=== PATIENT | female | born 1935 | race Asian ===

== ENCOUNTER 2021-11-10 00:33 | Inpatient (IN) | payer OTHER, MEDICARE ==
[~2021-11-10] VITALS: Ht 157.5 cm; Wt 56.7 kg
--- NOTE | 2021-11-10 00:40 | NUR ---
PATIENT PLACED IN BED [address] MURPHY AT BEDSIDE.
[2021-11-10 00:41] VITALS: BP_SYST 164
--- NOTE | 2021-11-10 00:44 | NUR ---
PATIENT BIBA FROM HOME FOR GENERAL WEAKNESS AND INCREASE IN ANXIETY. PATIENT MOANING BUT STATES SHE ALWAYS MOANS, AND STOPS MOANING WHEN SPEAKING. PATIENT WAS RECENTLY DISCHARGED FOR SEPSIS OF UNKNOWN ORIGIN. PATIENT A/OX4, BED-BOUND WITH WHEELER IN PLACE.
--- NOTE | 2021-11-10 01:04 | NUR ---
ASSUME CARE OF PTJOELLEN FOR INCREASED ANXIETY, PT STATES SHE ALWAYS MOANS, PER FAMILY SHE DOES NOT. PT WAS UNABLE TO SLEEP TONIGHT AND FAMILY DID NOT KNOW WHAT TO DO SO EMS WAS CALLED TO BRING HER TO ER, AT BEDSIDE. HX- ANXIETY AND A-FIB.
[2021-11-10] MEDS ORDERED: LORazepam 2 MG/ML VIAL IVP ONE ×2 (01:15→05:00)
--- NOTE | 2021-11-10 01:45 | NUR ---
PT LINEN AND DIAPER CHANGED, PT HAD SMALL DM, CLEANED WITH WIPES, PT HAS STAGE 1 BEDSORE ON COCCYX, DRESSING APPLIED, NEW PAD PLACED, WARM BLANKET GIVEN, PT RESTING IN BED.
[2021-11-10 02:01] LABS: ANION GAP 3 (5-15); CALCIUM 8.2 mg/dL (8.4-11.0); CHLORIDE 97 mmol/L (98-107); CREATININE 0.58 mg/dL (0.55-1.30); GLUCOSE 102 mg/dL (70-99); POTASSIUM 3.4 mmol/L (3.5-5.1); UREA NITROGEN, BLOOD 28 mg/dL (8-21)
[2021-11-10 02:06] LABS: ALANINE AMINOTRANSFERASE 18 U/L (12-78); ALBUMIN 2.3 g/dL (3.4-4.8); ASPARTATE AMINOTRANSFERASE 19 U/L (10-37); TOTAL BILIRUBIN 0.3 mg/dL (0.0-1.0)
[2021-11-10 02:18] LABS: BASOPHILS # (AUTO) 0.1 K/uL (0.0-0.2); BASOPHILS % (AUTO) 0.5 % (0.0-2.0); EOSINOPHILS # (AUTO) 0.1 K/uL (0.0-0.4); EOSINOPHILS % (AUTO) 1.3 % (0.0-4.0); HEMOGLOBIN 11.5 g/dL (12.0-16.0); LYMPHOCYTES # (AUTO) 0.8 K/uL (1.0-5.5); LYMPHOCYTES % (AUTO) 7.3 % (20.5-51.5); MEAN CORPUSCULAR HEMOGLOBIN 30 pg (27-31); MEAN CORPUSCULAR HGB CONC 35 % (32-36); MEAN CORPUSCULAR VOLUME 86 fL (79.0-98.0); MONOCYTES # (AUTO) 0.6 K/uL (0.0-1.0); MONOCYTES % (AUTO) 5.9 % (1.7-9.3); NEUTROPHILS # (AUTO) 9.3 K/uL (1.8-7.7); PLATELET COUNT (AUTO) 348 K/uL (130-430); RED BLOOD CELL COUNT(AUTO) 3.85 MIL/uL (4.2-6.2); RED CELL DISTRIBUTION WIDTH 16.6 % (9.0-15.0); WHITE BLOOD COUNT (AUTO) 10.9 K/uL (4.8-10.8)
[2021-11-10] MEDS ORDERED: MAGNESIUM CITRATE 300 ML ORAL SOLUTION PO ONE (03:15)
[2021-11-10 03:50] LABS: BILIRUBIN,URINE NEGATIVE (NEGATIVE); BLOOD, URINE 3+ (NEGATIVE); CLARITY/URINE CLEAR (CLEAR); COLOR,URINE YELLOW (YELLOW); GLUCOSE,URINE NEGATIVE (NEGATIVE); KETONES,URINE NEGATIVE (NEGATIVE); LEUKOCYTE ESTERASE ,URINE 1+ (NEGATIVE); NITRITE, URINE POSITIVE (NEGATIVE); PROTEIN URINE NEGATIVE (NEGATIVE); UROBILINOGEN,URINE 0.2 (0.2-1.0)
--- NOTE | 2021-11-10 03:50 | NUR ---
# 16 FR Whatley catheter with use of sterile technique. Immediate return of 100cc YELLOW CLOUDY urine noted. Bedside drainage bag placed below level of bladder. Urine sample collected and sent to lab. Pt tolerated procedure WELL. Patient arrived with whatley in place, changed due to standard of practice prior to admission.
--- NOTE | 2021-11-10 04:20 | NUR ---
PATIENT IN CT SCAN AT THIS TIME
[2021-11-10 04:32] LABS: RBC,URINE >100 /HPF (0-3)
[2021-11-10 04:33] LABS: BACTERIA,URINE None Seen /HPF (None Seen)
[2021-11-10 04:34] LABS: MUCUS,URINE 1+ /LPF (None Seen)
--- NOTE | 2021-11-10 04:44 | NUR ---
PT RETURN FROM CT SCAN
--- NOTE | 2021-11-10 05:25 | NUR ---
Admit bed requested Patient will be admitted to care of [OZZIE]. Admitted to [MED SURG] unit. Diagnosis [COMPLEX UTI] Inpatient (Yes or No) [YES] Observation (Yes or No) [NO] Orientation concerns or request close to nursing station (Yes or No) [NO] Covid Status [NEG] On vent or bipap [NO] Isolation requirements [NO] Needs a sitter [NO] From Home (Yes or if No enter name of facility) [YES] Requires Dialysis (Yes or No) [NO] Med Rec Completed (Yes of No) [NO]
[2021-11-10] MEDS ORDERED: ONDANSETRON HCL 4 MG/2 ML VIAL IVP PRN (05:30)
[2021-11-10] MEDS ORDERED: KETOROLAC TROMETHAMINE 15 MG VIAL IVP PRN (05:30)
--- NOTE | 2021-11-10 06:00 | NUR ---
PT LINEN AND PAD CHANGED. CLEAN PAD AND LINEN PLACED. WARM BLANKETS PROVIDED, PT RESTING IN BED.
[2021-11-10] MEDS ORDERED: SODIUM PHOSPHATE,MONO-DIBASIC 133 ML ENEMA RC ONE (06:45)
--- NOTE | 2021-11-10 07:59 | NUR ---
REPORT RECEIVED, PT IN NAD, WITH EYES CLOSED, VSS. RESP EVEN AND UNLABORED, ON RA @94%. SAFETY MEASURES IN PLACE, WILL CONT TO MONITOR. WAITING FOR ADMISSION BED.
[2021-11-10] MEDS: cefTRIAXone 1 GM VIAL IM SCH ×2 (10:23→10:40)
--- NOTE | 2021-11-10 10:28 | NUR ---
REPORT GIVEN TO BRENNA TORRES IN M/S, UPDATED ON PT'S STATUS, LABS AND VITALS. PT STABLE FOR TRANSFER.
[2021-11-10] MEDS ORDERED: LIDOCAINE 1%, 20 ML MDV 20 ML ONE (10:30)
--- NOTE | 2021-11-10 11:00 | NUR ---
ADMISSION NOTES RECEIVED PT FROM E.R. WITH DX OF COMPLEX UTI UNDER THE CARE OF DR HORNE. PT SITUATED IN BED, ON O2 2L PER NC, VITALS WNL, NO FEVER. PT IS LETHARGIC, PT HAS SLURRED SPEECH. PT EDUCATED ON THE USE OF CALL LIGHT, TV AND BED CONTROLS, NEED FURTHER INSTRUCTION. WILL ENDORSE TO ACCEPTING NURSE FOSTER.
--- NOTE | 2021-11-10 11:05 | NUR ---
ADMISSION NOTE Received patient from ER via gurney. Patient admitted with diagnosis of complex UTI. Patient is awake, alert, oriented X 2. Patient oriented to hospital room, call light, toileting, pain management and safety-teach back done. Patient informed that their room number is 132 C. Personal belongings checked and Belongings List documented. Call light within reach.
[2021-11-10 11:46] VITALS: BP_SYST 109
--- NOTE | 2021-11-10 11:48 | NUR ---
Patient will be admitted to care of RN. Admitted to med surg. unit. Will go to room 132c Belongings list completed. Complete and up to date summary report printed. SBAR report to be given at bedside with opportunity for questions.
[2021-11-10 14:00] VITALS: BP_SYST 115
[2021-11-10 17:07] VITALS: BP_SYST 110
--- NOTE | 2021-11-10 19:20 | NUR ---
Closing Notes: Patient resting in bed. No s/s of acute distress noted. Needs met throughout shift. Endorsed to dryer and washer mechanic RN.
[2021-11-10 20:00] VITALS: BP_SYST 130
--- NOTE | 2021-11-10 20:00 | NUR ---
HAND-OFF REPORT RECEIVED FROM AM NURSE HANS . NEXT DOSE OF ANTIBIOTICS NOT DUE TILL TOMORROW. SON AT BEDSIDE REQUESTING ATIVAN FOR TONIGHT "OTHERWISE SHE MOANS THRU OUT NOC INSPITE WHETHER SHE IS IN PAIN OR NOT." PT RECEIVED IN BED AWAKE AND ALERTX2. DENIES PAIN. WHEELER TO GRAVITY FLOW REINALDO URINE QUANTITY SUFFICIENT..
--- NOTE | 2021-11-10 22:10 | NUR ---
TYLENOL 500 MG FOR STATED "MIDDLE BACK PAIN" 08/24. REALLY MOANING QUITE A BIT NOW. PHONE CALL X1 TO OZZIE FARR FOR ATIVAN ORDER.
[2021-11-10] MEDS: ACETAMINOPHEN 500 MG TABLET PO PRN (22:34)
[2021-11-11] MEDS ORDERED: LORazepam 2 MG/ML VIAL IVP PRN (00:45)
--- NOTE | 2021-11-11 01:08 | NUR ---
DR HORNE PHONED AGAIN AND PROMPTLY RETURNED CALL. 1MG OF ATIVAN GIVEN SEE EMAR.
--- NOTE | 2021-11-11 01:30 | NUR ---
PT SLEEPING SOUNDLY. CONTINUE TO MONITOR AND ASSIST NEEDED.
[2021-11-11 04:00] VITALS: BP_SYST 139
[2021-11-11 08:00] VITALS: BP_SYST 110
[2021-11-11] MEDS: ACETAMINOPHEN 500 MG TABLET PO PRN ×2 (08:15→22:56)
--- NOTE | 2021-11-11 09:22 | NUR ---
PAGED PAGED KHRIS ESTRADA AT [phone] SPOKE WITH PEDRITO
[2021-11-11] MEDS ORDERED: SODIUM PHOSPHATE,MONO-DIBASIC 133 ML ENEMA RC ONE (09:45)
[2021-11-11] MEDS ORDERED: POLYETHYLENE GLYCOL 3350, 17 GM/ POWD.PACK PO ONE (10:00)
[2021-11-11] MEDS ORDERED: PIPERACILLIN/TAZO 4.5GM/DEX-IS 100 ML IV ONE (10:45)
[2021-11-11 12:00] VITALS: BP_SYST 100
[2021-11-11] MEDS: HYDROcodone/ACETAMIN 5-325 MG TAB (NORCO/ VICODIN) PO PRN (12:00)
[2021-11-11] MEDS ORDERED: PIPERACILLIN/TAZO 4.5GM/DEX-IS 100 ML IV SCH (14:00)
--- NOTE | 2021-11-11 14:12 | NUR ---
PAGED PAGED KHRIS ESTRADA AT [phone] SPOKE WITH PEDRITO.
[2021-11-11 16:00] VITALS: BP_SYST 155
[2021-11-11] MEDS ORDERED: MINERAL OIL 30 ML UDC PO ONE (16:00)
--- NOTE | 2021-11-11 16:15 | NUR ---
CONSULTATION PAGED REASON FOR CONSULTATION:SEVERE CONSTIPATION WAS CONSULT CALLED?Y -PERSON WHO WAS NOTIFIED:KATHY CONSULTING PHYSICIAN:RODRICK CAREY (RAMIREZ IRENE MACHINE PRESSER) UNATTENDED GROUND SENSOR SPECIALIST SPECIALTY:GI UNATTENDED GROUND SENSOR SPECIALIST PHONE NUMBER:[phone] REQUESTING PHYSICIAN:KHRIS ESTRADA
--- NOTE | 2021-11-11 18:29 | NUR ---
PATIENT HAS BEEN HAVING DIFFICULTY EVACUATING BM FROM RECTUM. I NOTIFIED DR. HORNE THIS AM FOR THIS PROBLEM EARLIER AND SEVERAL MEASURES HAVE BEEN IMPLEMENTED TO ASSIST IN THIS MATTER. PT WAS GIVEN A FLEETS ENEMA AND MIRALAX THIS AM. PT REPOSITIONED TO ASSIST IN COMFORT TO HAVE A BM. DR. HORNE MADE ROUNDS THIS PM AND FURTHER ORDERS NOTED TO INCLUDE A KUB, GI CONSULT AND MINERAL OIL PO. PT HAS HAD FAMILY AT BEDSIDE THROUGHOUT THE SHIFT TO SUPPORT HER. PT IS ALERT AND SPEAKS CLEARLY. HOWEVER, PT DOES MOAN AT INTERVALS. PT'S FAMILY SAYS - ITS A HABIT OF THE PATIENT. FAMILY REMAINS AT BEDSIDE AT THIS TIME.
[2021-11-11] MEDS ORDERED: HYD10 PO ×2 (18:33)
[2021-11-11] MEDS ORDERED: GUAI100S14 PO (18:33)
[2021-11-11] MEDS ORDERED: ASCO500T20 PO (18:33)
[2021-11-11] MEDS ORDERED: FLOR.1 GT (18:33)
[2021-11-11] MEDS ORDERED: AMIO200T66 PO (18:33)
[2021-11-11] MEDS ORDERED: ACET325T53 PO (18:33)
[2021-11-11] MEDS ORDERED: HYDR-3917 PO (18:33)
[2021-11-11] MEDS ORDERED: ALBU2.5V7 INH (18:33)
[2021-11-11] MEDS ORDERED: DOCU-144 PO (18:33)
[2021-11-11] MEDS ORDERED: APIX2.5T PO (18:33)
[2021-11-11] MEDS ORDERED: TRAM50TA2 PO (18:33)
[2021-11-11] MEDS ORDERED: MULT15TA3 PO (18:33)
[2021-11-11] MEDS ORDERED: HYDR-4037 PO (18:33)
[2021-11-11] MEDS ORDERED: HYDR-4038 PO (18:33)
[2021-11-11] MEDS ORDERED: TEMA15CA5 PO (18:33)
[2021-11-11 20:00] VITALS: BP_SYST 153
[2021-11-11] MEDS: PIPERACILLIN/TAZO 4.5GM/DEX-IS 100 ML IV SCH (20:45)
[2021-11-11] MEDS: POLYETHYLENE GLYCOL 3350, 17 GM/ POWD.PACK PO SCH (20:45)
[2021-11-11] MEDS: MINERAL OIL 30 ML UDC PO SCH (20:45)
[2021-11-11] MEDS: HYDROCORTISONE 10 MG TABLET (CORTEF) PO SCH ×2 (21:45)
[2021-11-11] MEDS: hydrALAZINE HCL 25 MG TABLET PO SCH (22:00)
[2021-11-11] MEDS: SODIUM CHLORIDE 500 MG TABLET PO SCH (22:54)
[2021-11-11] MEDS: AMIODARONE HCL 200 MG TABLET PO SCH ×2 (22:55→22:59)
[2021-11-11] MEDS: APIXABAN 2.5 MG TABLET PO SCH (23:11)
[2021-11-12] VITALS: BP_SYST 102
[2021-11-12 04:00] VITALS: BP_SYST 95
[2021-11-12] MEDS: PIPERACILLIN/TAZO 4.5GM/DEX-IS 100 ML IV SCH ×3 (05:13→21:04)
--- NOTE | 2021-11-12 07:30 | NUR ---
OPENING NOTE Patient resting in bed with eyes closed. Patient moans periodically, assisted patient in repositioning and comfort measures provided. Lopez catheter is in place draining yellow urine. All needs met at this time and safety checks made.
[2021-11-12 07:34] VITALS: BP_SYST 129
[2021-11-12] MEDS: POLYETHYLENE GLYCOL 3350, 17 GM/ POWD.PACK PO SCH ×2 (09:00→22:24)
[2021-11-12] MEDS: MINERAL OIL 30 ML UDC PO SCH ×2 (09:15→21:49)
[2021-11-12] MEDS: hydrALAZINE HCL 25 MG TABLET PO SCH ×2 (09:16→21:00)
[2021-11-12] MEDS: SODIUM CHLORIDE 500 MG TABLET PO SCH ×3 (09:16→21:50)
[2021-11-12] MEDS: DOCUSATE SODIUM 100 MG CAPSULE PO SCH ×2 (09:17→21:49)
[2021-11-12] MEDS: HYDROcodone/ACETAMIN 5-325 MG TAB (NORCO/ VICODIN) PO PRN (09:17)
[2021-11-12] MEDS: HYDROCORTISONE 10 MG TABLET (CORTEF) PO SCH ×2 (09:18→17:57)
[2021-11-12] MEDS: APIXABAN 2.5 MG TABLET PO SCH ×2 (09:19→21:50)
--- NOTE | 2021-11-12 10:00 | NUR ---
AT BEDSIDE Dr Tellez at bedside to see the patient. performed a manual disimpaction and was able to remove a large amount of hard stool. Patient cleaned and comfort measures provided. All needs met at this time and safety checks made.
[2021-11-12] MEDS ORDERED: MAGNESIUM CITRATE 300 ML ORAL SOLUTION PO ONE (11:15)
[2021-11-12 11:31] VITALS: BP_SYST 120
--- NOTE | 2021-11-12 13:51 | NUR ---
ROUNDS Patient in bed resting with eyes closed. Patient has been cooperative with her care. Family is at bedside and they have been updated on the plan of care. Patient does not appear to be in any pain or have any distress. All needs met at this time and safety checks made.
[2021-11-12 16:12] VITALS: BP_SYST 122
--- NOTE | 2021-11-12 18:30 | NUR ---
CLOSING NOTE Patient is resting in bed, no sign of distress and denies pain. Patient is much more cooperative with her care when family is at bedside. Patient and family have been updated on the plan of care and verbalized understanding. Lopez catheter is patent and draining yellow urine. Patient has had a decreased appetite throughout the shift. No complaints of stomach pain, patient has not had any more bowel movements since her digital decompation this morning. All needs met at this time and safety checks made. Will endorse to awake overnight monitor nurse.
[2021-11-12 20:51] VITALS: BP_SYST 129
[2021-11-12] MEDS: ACETAMINOPHEN 500 MG TABLET PO PRN (22:17)
[2021-11-12] MEDS: AMIODARONE HCL 200 MG TABLET PO SCH (22:17)
[2021-11-12] MEDS: TEMAZEPAM 15 MG CAPSULE PO PRN (22:18)
[2021-11-13 02:16] VITALS: BP_SYST 104
--- NOTE | 2021-11-13 02:32 | NUR ---
Patient had two very large hard stools this shift and one small one, she continued to push as she was in pain, prescribed medications including Tylenol given, her hydralazine not given as her blood pressure was within range,she is stable, sleeping.
[2021-11-13] MEDS: PIPERACILLIN/TAZO 4.5GM/DEX-IS 100 ML IV SCH ×3 (03:04→21:52)
[2021-11-13 04:18] VITALS: BP_SYST 119
[2021-11-13 06:52] LABS: BASOPHILS % (AUTO) 0.5 % (0.0-2.0); EOSINOPHILS # (AUTO) 0.1 K/uL (0.0-0.4); EOSINOPHILS % (AUTO) 1.7 % (0.0-4.0); HEMOGLOBIN 9.9 g/dL (12.0-16.0); LYMPHOCYTES # (AUTO) 0.5 K/uL (1.0-5.5); LYMPHOCYTES % (AUTO) 6.2 % (20.5-51.5); MEAN CORPUSCULAR HEMOGLOBIN 30 pg (27-31); MEAN CORPUSCULAR HGB CONC 36 % (32-36); MEAN CORPUSCULAR VOLUME 85 fL (79.0-98.0); MONOCYTES # (AUTO) 0.5 K/uL (0.0-1.0); MONOCYTES % (AUTO) 6.3 % (1.7-9.3); NEUTROPHILS # (AUTO) 7.5 K/uL (1.8-7.7); NEUTROPHILS % (AUTO) 85.3 % (40.0-70.0); PLATELET COUNT (AUTO) 279 K/uL (130-430); RED BLOOD CELL COUNT(AUTO) 3.29 MIL/uL (4.2-6.2); RED CELL DISTRIBUTION WIDTH 17.1 % (9.0-15.0); WHITE BLOOD COUNT (AUTO) 8.7 K/uL (4.8-10.8)
[2021-11-13 07:06] LABS: ANION GAP 5 (5-15); CHLORIDE 93 mmol/L (98-107); GLUCOSE 108 mg/dL (70-99); UREA NITROGEN, BLOOD 17 mg/dL (8-21)
[2021-11-13 07:23] LABS: CREATININE 0.61 mg/dL (0.55-1.30)
[2021-11-13 07:29] LABS: CALCIUM 7.7 mg/dL (8.4-11.0)
--- NOTE | 2021-11-13 07:30 | NUR ---
OPENING NOTE Patient in bed resting with eyes closed, no sign of distress or pain. Nasal cannula in place on 2L, breathing is nonlabored and even, oxygen saturation 98%. Lopez catheter is patent and draining leigh urine. Patient periodically moans out but denies pain. All needs met at this time and safety checks made.
[2021-11-13 08:00] VITALS: BP_SYST 109
[2021-11-13] MEDS: hydrALAZINE HCL 25 MG TABLET PO SCH ×2 (09:00→21:54)
[2021-11-13] MEDS ORDERED: POTASSIUM CHLORIDE 20 MEQ TAB.PRT.SR PO ONE ×2 (09:30→13:30)
--- NOTE | 2021-11-13 10:00 | NUR ---
BOWEL MOVEMENT Patient had a large formed bowel movement. Patient cleaned and all needs met at this time.
[2021-11-13] MEDS: MINERAL OIL 30 ML UDC PO SCH ×2 (10:37→21:55)
[2021-11-13] MEDS: SODIUM CHLORIDE 500 MG TABLET PO SCH ×3 (10:38→21:56)
[2021-11-13] MEDS: DOCUSATE SODIUM 100 MG CAPSULE PO SCH ×2 (10:38→21:54)
[2021-11-13] MEDS: HYDROCORTISONE 10 MG TABLET (CORTEF) PO SCH ×2 (10:38→17:59)
[2021-11-13] MEDS: AMIODARONE HCL 200 MG TABLET PO SCH ×2 (10:39→21:57)
[2021-11-13] MEDS: POLYETHYLENE GLYCOL 3350, 17 GM/ POWD.PACK PO SCH ×2 (10:39→21:56)
[2021-11-13] MEDS: APIXABAN 2.5 MG TABLET PO SCH ×2 (10:40→21:55)
[2021-11-13 12:00] VITALS: BP_SYST 140
[2021-11-13 16:00] VITALS: BP_SYST 137
--- NOTE | 2021-11-13 17:23 | NUR ---
ROUNDS Patient in bed resting with family at bedside. Patient shows no sign of distress and denies pain. Nasal cannula in place and breathing is nonlabored and even. Patient has had a total of 3 bowel movements thus far on day shift, each has been smaller and less formed than the last. Patient's stomach is less tender and minimally distended. Bed bath was given and linen/gown changed. All needs met at this time and safety checks made.
--- NOTE | 2021-11-13 18:51 | NUR ---
CLOSING NOTE Patient resting in bed with family at bedside. Patient has had minimal moaning and no complaints of pain throughout the shift. Lopez catheter is patent and draining yellow urine. Patient and family are up to date on the plan of care. All needs met at this time and safety checks made. Will endorse to production supervisor off shift nurse.
--- NOTE | 2021-11-13 19:30 | NUR ---
RECEIVED PT IN BED WITH FAMILY AT THE BEDSIDE.AOX2, CONFUSED AT TIMES. IVL R AC G 20 ,PATENT AND INTACT.F/C IN PLACE.BED ALARM ON FOR SAFETY.BED IN LOWEST POSITION.BEDSIDE TABLE AND CALL LIGHT ARE WITHIN REACH.
[2021-11-13 20:00] VITALS: BP_SYST 136
--- NOTE | 2021-11-14 | NUR ---
ROUNDS MADE.PT IS ASLEEP.NOT IN RESPIRATORY DISTRESS NOTED.
[2021-11-14 01:05] VITALS: BP_SYST 105; BP_SYST 152
[2021-11-14] MEDS: PIPERACILLIN/TAZO 4.5GM/DEX-IS 100 ML IV SCH ×3 (03:31→20:44)
[2021-11-14 08:24] VITALS: BP_SYST 146
[2021-11-14] MEDS: SODIUM CHLORIDE 500 MG TABLET PO SCH ×3 (08:43→20:44)
[2021-11-14] MEDS: HYDROCORTISONE 10 MG TABLET (CORTEF) PO SCH ×2 (08:44→17:07)
[2021-11-14] MEDS: AMIODARONE HCL 200 MG TABLET PO SCH ×2 (08:44→20:41)
[2021-11-14] MEDS: DOCUSATE SODIUM 100 MG CAPSULE PO SCH (08:44)
[2021-11-14] MEDS: MINERAL OIL 30 ML UDC PO SCH (08:45)
[2021-11-14] MEDS: hydrALAZINE HCL 25 MG TABLET PO SCH ×2 (08:45→20:42)
[2021-11-14] MEDS: POLYETHYLENE GLYCOL 3350, 17 GM/ POWD.PACK PO SCH (08:45)
[2021-11-14] MEDS: APIXABAN 2.5 MG TABLET PO SCH ×2 (08:46→20:40)
[2021-11-14] MEDS ORDERED: POLYETHYLENE GLYCOL 3350, 17 GM/ POWD.PACK PO ONE (09:30)
--- NOTE | 2021-11-14 11:59 | NUR ---
Discharge Planning: DCP faxed pt referral to [facility] [phone] NIKIAP to follow up. Addendum: 11/14/21 at 1453 by Mabel Perez DP DCP arranged transport with [facility] [phone] BLS Will Call to [facility] [phone] Rm 224A. DCP made CM and nurse aware. Patient packet taken to nurse station. Disposition 03
[2021-11-14 12:00] VITALS: BP_SYST 137
--- NOTE | 2021-11-14 16:08 | NUR ---
S/W DR. HORNE AND HE SAID PT IS DC TO SNF. THEN S/W PT/'S DAUGHTER, ROCÍO. SHE STATED THAT NOBODY HAS TALKED TO HER ABOUT PT GOING TO ANY FACILITY, AND IF SHE IS BEING DISCHARGED SHE WILL GO HOME WITH FAMILY AND NOT TODAY BUT MAYBE SAT OR SUN. CALLED PETE MYSQL DEVELOPER, SHE STATED THAT DISCHARGE WAS DISCUSSED WITH DR. HORNE AND PLEASE HAVE DR. HORNE SPEAK WITH PT. CALLED MD BACK AND HE SAID HAVE MYSQL DEVELOPER CALL HIM BACK INSTEAD.
[2021-11-14 16:48] VITALS: BP_SYST 144
--- NOTE | 2021-11-14 18:23 | NUR ---
CLOSING NOTE: PT REMAINED STABLE THROUGHOUT THE DAY. PROVIDED SKIN CARE AND REPOSITIONING TO PREVENT SKIN BREAKDOWN. ALL CARE NEEDS MET. FALL/SAFETY/ASPIRATION PRECAUTIONS. BED IN LOW POSITION. DC PLANNING TOMORROW, PT AND FAMILY WANTS TO SPEAK WITH DR. HORNE.
[2021-11-14 20:30] VITALS: BP_SYST 156
[2021-11-14] MEDS: TEMAZEPAM 15 MG CAPSULE PO PRN (20:40)
[2021-11-15 01:20] VITALS: BP_SYST 134
[2021-11-15] MEDS: PIPERACILLIN/TAZO 4.5GM/DEX-IS 100 ML IV SCH ×3 (04:47→22:06)
--- NOTE | 2021-11-15 07:30 | NUR ---
OPENING NOTES: PATIENT IS RESTING IN BED QUIETLY. AAOX3 W/ EPISODE OF FORGETFULNESS. ABLE TO MAKE NEEDS KNOWN. [place] L>R. NO DISTRESS OR PAIN NOTED AT THIS TIME. EXPLAINED POC AND PATIENT VERBALIZED UNDERSTANDING. BED IN LOW AND LOCK POSITION. CALL LIGHT AND BEDSIDE TABLE WITHIN REACH. STABLE CONDITION.
[2021-11-15 08:00] VITALS: BP_SYST 142
[2021-11-15 08:48] LABS: ANION GAP 4 (5-15); CALCIUM 8.1 mg/dL (8.4-11.0); CHLORIDE 95 mmol/L (98-107); CREATININE 0.48 mg/dL (0.55-1.30); GLUCOSE 83 mg/dL (70-99); POTASSIUM 3.9 mmol/L (3.5-5.1); UREA NITROGEN, BLOOD 15 mg/dL (8-21)
[2021-11-15] MEDS: SODIUM CHLORIDE 500 MG TABLET PO SCH ×3 (09:27→22:08)
[2021-11-15] MEDS: AMIODARONE HCL 200 MG TABLET PO SCH ×2 (09:27→22:07)
[2021-11-15] MEDS: hydrALAZINE HCL 25 MG TABLET PO SCH ×2 (09:28→22:08)
[2021-11-15] MEDS: HYDROCORTISONE 10 MG TABLET (CORTEF) PO SCH ×2 (09:29→18:55)
[2021-11-15] MEDS: DOCUSATE SODIUM 100 MG CAPSULE PO SCH (09:29)
[2021-11-15] MEDS: POLYETHYLENE GLYCOL 3350, 17 GM/ POWD.PACK PO SCH (09:29)
[2021-11-15] MEDS: APIXABAN 2.5 MG TABLET PO SCH ×2 (09:31→22:10)
--- NOTE | 2021-11-15 11:15 | NUR ---
DISCHARGE PLANNING Per CM director spoke with dtr yest & does not want snf wants home with home health with IV abx, dtr had already spoken with Dr Louis. CM Director also spoke with JOVANY Garnica & plan was for home with home health IV abx. I called dtr Anna Oropeza, ph [phone], & no answer lt msg to return my call. Also informed pt's nurse to notify me if dtr come in or if calls to transfer to id. Called & lt msg with Dr Louis to return call for dc/dc planning orders. Addendum: 11/15/21 at 1415 by Donna Bedoya RN Called & spoke with nawaf Anna, ph [phone], at 1230. Verified address correct on face sheet. Pt lives at home with dtmelody Castillo. Has hospital bed, side table, wc, commode, home O2, the DME was delivered today to home by [employer], ph [phone]. Dtr is arranging the room for pt and would prefer discharge home tomorrow so she can finish arranging space for pt & pt's son is arriving tonight so will be able to assist tomorrow. Pt had whatley since early September. Pt was on services with [employer], ph [phone] fax [phone], and want to cont with same. Has spoken with Kevin and they are requesting pt info faxed to them, informed will send when get order. Would like to speak with Dr Louis before pt discharges. Called Dr Louis cell with no answer, called Dr Louis office, , & had paged to return call for dc planning orders. Addendum: 11/15/21 at 1526 by Donna Bedoya RN Received call back from Dr Loius, gave ph orders for home health & DME, is switching IV abx to Po ab. States will come in later to eval pt & will call & speak with dtmelody Castillo. Is going to be ordering bladder training for whatley removal, states he will eval & put in orders. Called and spoke with Chidi at [employer] & verified they delivered DME to home today to [employer] Sp lift order to them, fax [phone]. Updated dc corporate event planner, faxed referral to [facility] & [employer].
[2021-11-15 12:33] VITALS: BP_SYST 134
[2021-11-15 16:19] VITALS: BP_SYST 111
--- NOTE | 2021-11-15 16:46 | NUR ---
Dietitian Recommendations * Continue Mechanical Soft diet, as tolerated * Ensure HP TID (may/van) * Recommend Culturelle; continue bowel regimen per MD Please refer to Nutritional Assessment for details, thanks! CC, MPH, RDN
--- NOTE | 2021-11-15 17:40 | NUR ---
Patient was seen for OT evaluation. Pt was alert and cooperative, daughte present during eval. Pt will be doing OT tx QD 3x/wk. Pt tolerated eval, O2Sat 99 % at rest with 2.5/L O2 via nasal canula. 89-90% with activity. 93-94% after eval. Nursing notified. PLs see OT evaluation form in chart for more details.
--- NOTE | 2021-11-15 19:00 | NUR ---
CLOSING NOTES: PATIENT IS RESTING IN BED QUIETLY W/ DAUGHTER AT THE BEDSIDE. NO ADDITIONAL DISTRESS NOTED. ALL NEEDS MET. POSSIBLE DC TOMORROW. NEED TRANSPORT FOR DC. WILL ENDORSE TO NEXT SHIFT NURSE TO LET CM KNOW IN AM. STABLE CONDITION AT THIS TIME.
[2021-11-15 20:00] VITALS: BP_SYST 140
[2021-11-15] MEDS: TEMAZEPAM 15 MG CAPSULE PO PRN (22:06)
[2021-11-16 00:14] VITALS: BP_SYST 112
[2021-11-16] MEDS: PIPERACILLIN/TAZO 4.5GM/DEX-IS 100 ML IV SCH ×2 (04:54→13:58)
[2021-11-16 07:21] LABS: BASOPHILS # (AUTO) 0.1 K/uL (0.0-0.2); BASOPHILS % (AUTO) 0.8 % (0.0-2.0); EOSINOPHILS # (AUTO) 0.2 K/uL (0.0-0.4); EOSINOPHILS % (AUTO) 2.3 % (0.0-4.0); HEMATOCRIT 30.5 % (36-48); HEMOGLOBIN 10.7 g/dL (12.0-16.0); LYMPHOCYTES # (AUTO) 0.7 K/uL (1.0-5.5); LYMPHOCYTES % (AUTO) 9.9 % (20.5-51.5); MEAN CORPUSCULAR HEMOGLOBIN 30 pg (27-31); MEAN CORPUSCULAR HGB CONC 35 % (32-36); MEAN CORPUSCULAR VOLUME 86 fL (79.0-98.0); MONOCYTES # (AUTO) 0.8 K/uL (0.0-1.0); MONOCYTES % (AUTO) 10.2 % (1.7-9.3); NEUTROPHILS # (AUTO) 5.8 K/uL (1.8-7.7); NEUTROPHILS % (AUTO) 76.8 % (40.0-70.0); PLATELET COUNT (AUTO) 338 K/uL (130-430); RED BLOOD CELL COUNT(AUTO) 3.56 MIL/uL (4.2-6.2); RED CELL DISTRIBUTION WIDTH 16.8 % (9.0-15.0); WHITE BLOOD COUNT (AUTO) 7.6 K/uL (4.8-10.8)
--- NOTE | 2021-11-16 07:30 | NUR ---
Closing Patient stable, no distress noted. Hard of hearing, whiteboard utilized for communication. Patient's daughter was at bedside and had questions about the plan for discharge. She stated that she will bring updated information about their preferred pharmacy in AM on 9 and that they will need transport arranged.
--- NOTE | 2021-11-16 07:44 | NUR ---
Report received from retail shift supervisor RN for continuity of care. Patient stable condition. No acute distress noted.
[2021-11-16 08:08] LABS: ANION GAP 5 (5-15); CALCIUM 8.2 mg/dL (8.4-11.0); CHLORIDE 95 mmol/L (98-107); CREATININE 0.58 mg/dL (0.55-1.30); GLUCOSE 92 mg/dL (70-99); POTASSIUM 3.4 mmol/L (3.5-5.1); UREA NITROGEN, BLOOD 14 mg/dL (8-21)
[2021-11-16 08:15] VITALS: BP_SYST 149
[2021-11-16 08:59] VITALS: BP_SYST 149
[2021-11-16] MEDS: DOCUSATE SODIUM 100 MG CAPSULE PO SCH (09:02)
[2021-11-16] MEDS: HYDROCORTISONE 10 MG TABLET (CORTEF) PO SCH ×2 (09:02→18:14)
[2021-11-16] MEDS: hydrALAZINE HCL 25 MG TABLET PO SCH (09:02)
[2021-11-16] MEDS: POLYETHYLENE GLYCOL 3350, 17 GM/ POWD.PACK PO SCH (09:03)
[2021-11-16] MEDS: AMIODARONE HCL 200 MG TABLET PO SCH (09:03)
[2021-11-16] MEDS: SODIUM CHLORIDE 500 MG TABLET PO SCH ×2 (09:04→18:14)
[2021-11-16] MEDS: APIXABAN 2.5 MG TABLET PO SCH (09:05)
--- NOTE | 2021-11-16 10:26 | NUR ---
Dr. Phillips made aware of patient's potassium level 2.9. Orders noted and carried out.
--- NOTE | 2021-11-16 10:30 | NUR ---
Discharge Planning: DCP followed up with [facility] [phone] accepted pt.
--- NOTE | 2021-11-16 11:11 | NUR ---
DISCHARGE PLANNING Called & lt msg with Dr Louis for dc orders. Called Dr Louis's office and paged Per dc partner integration planner [employer]) has been calling dtr for jayesh lift delivery and not answering. I called & lt msg with dtr Anna, ph [phone], to [facility] & informed again that plan for dc today, awaiting dc order. Addendum: 11/16/21 at 1211 by Donna Bedoya RN Received call back from Dr Louis gave ph order to dc home with home health. Spoke with son Sam Oropeza at bedside, ph [phone], states pt's dtr is home resting. Ok for [employer] to call him for [place]. [place]. Is agreeable with dc home today with home health. Will need transport home. 3pm good time for waste picker. Per dc partner integration planner waste picker by [facility], ph [phone], today between 230p & 3p. Called & informed hima burns. Dc partner integration planner updating pt's nurse.
[2021-11-16 11:55] VITALS: BP_SYST 131
--- NOTE | 2021-11-16 12:21 | NUR ---
Spoke with CM and patient has pending transport at 3 pm today.
--- NOTE | 2021-11-16 14:33 | NUR ---
Spoke with Dr. Louis regarding patient's son concerns regarding whatley catheter and patient might retain urine. Dr. Louis ok with whatley in at the moment, but needs to follow up with urologist. Patient's son ok with urologist follow up. Patient made aware.
--- NOTE | 2021-11-16 14:40 | NUR ---
Discharge Planning: [facility] was made aware [facility] P# [phone] was not able to transport pt to home per insurance Called & informed son Sam [phone], [facility] [phone] will warehouse picker patient and transport home. [facility] made CM and med tech aware nurse on lunch.
[2021-11-16 15:05] VITALS: BP_SYST 131
[2021-11-16] MEDS ORDERED: AUG875 PO (15:21)
[2021-11-16 20:15] VITALS: BP_SYST 136
--- NOTE | 2021-11-16 20:16 | NUR ---
Report given to FRANKIE Delgado-B, BLS [facility] for continuity of care. Patient transporting home. No distress noted. Vital signs stable. IV removed. Patient wants to go home. Belongings with patient.
== END 2021-11-16 20:00 | disposition home health service (06) | DRG 690 ==
LOC: SED 00:33 → SMU 05:19
PROVIDERS: ADMIT Family Medicine; ATTEND Family Medicine
DX: N39.0 Urinary tract infection, site not specified (principal); E87.1 Hypo-osmolality and hyponatremia; F03.90 Unspecified dementia, unspecified severity, without behavioral disturbance, psychotic disturbance, mood disturbance, and anxiety; I48.0 Paroxysmal atrial fibrillation; F41.9 Anxiety disorder, unspecified; K56.41 Fecal impaction; Z20.822 Contact with and (suspected) exposure to COVID-19; I10 Essential (primary) hypertension; Z88.8 Allergy status to other drugs, medicaments and biological substances; Z79.899 Other long term (current) drug therapy
CPT/HCPCS: 36415; 70450-TC; 71045; 74018; 76376; 80048; 80053; 81000; 83735; 83880; 84484; 85025; 87081; 87086; 93005; 96374; 96376; 97110-GP; 97116-GP; 97530-GP; 99285; J0696; J2001; J2060; J2543